=== PATIENT | female | born 1950 | race Caucasian/White ===

== ENCOUNTER 2017-01-11 15:23 | Emergency (ER) | payer MEDICARE, OTHER ==
[~2017-01-11] VITALS: Ht 157.5 cm; Wt 75.0 kg
[2017-01-11 15:25] VITALS: BP 152/96; PULSE 77; RESP 14; TEMP 98.1; O2SAT 95
[2017-01-11 16:09] LABS: BASOPHIL # 0.1 TH/MM3 (0-0.2); BASOPHIL % 0.8 % (0.0-2.0); EOSINOPHIL # 0.2 TH/MM3 (0-0.4); EOSINOPHIL % 1.9 % (0.0-4.0); HEMATOCRIT 49.1 % (35.0-46.0); HEMO FLAGS DIFF FINAL; LYMPH % 28.9 % (9.0-44.0); LYMPHOCYTE # 2.8 TH/MM3 (1.0-4.8); MEAN CELL VOLUME 93.8 FL (80.0-100.0); MEAN CORPUSCULAR HEMOGLOBIN 31.6 PG (27.0-34.0); MEAN CORPUSCULAR HGB CONC 33.7 % (32.0-36.0); MONO % 5.4 % (0.0-8.0); PLATELET COUNT 152 TH/MM3 (150-450); RED BLOOD COUNT 5.23 MIL/MM3 (4.00-5.30); RED CELL DISTRIBUTION WIDTH 13.3 % (11.6-17.2); WHITE BLOOD COUNT 9.6 TH/MM3 (4.0-11.0)
[2017-01-11 16:36] LABS: BICARBONATE 25.1 MEQ/L (21.0-32.0); POTASSIUM 3.7 MEQ/L (3.5-5.1)
--- NOTE | 2017-01-11 17:21 | PD ---
HPI Chief Complaint: Abnormal Results Time Seen by Provider: 16:49 Travel History International Travel<30 days: No Contact w/Intl Traveler<30days: No Traveled to known affect area: No History of Present Illness HPI 66-year-old female came to the emergency room because a blood test that was done 2 weeks ago was told by her primary care today showed significant anemia. She was told that her hemoglobin was 6.5. However there was blood test done prior to patient arriving into the pod and the blood test result shows a hemoglobin of 16.5. She does not have any other complains. She was happy to hear the news of the hemoglobin. [facility] Past Medical History Narrative Medical List of her past medical, surgical, social and family history is reviewed from the nursing note. Diabetes: Yes Patient Takes Glucophage: No Diminished Hearing: Yes Endocrine: Yes (hypothyroidism) Hypertension: Yes Tetanus Vaccination: > 5 Years Influenza Vaccination: No Menopausal: Yes Tubal Ligation: Yes Past Surgical History Cholecystectomy: Yes Gynecologic Surgery: Yes (tubal) Social History Alcohol Use: Yes (once a year) Tobacco Use: Yes (PPD) Substance Use: No Allergies-Medications Comments Awaiting for the nurse to enter the allergy results Narrative Medication Awaiting for the nurse to do the medical reconciliation Review of Systems Except as stated in HPI: all other systems reviewed are Neg Physical Exam Narrative GENERAL: Awake, alert, no obvious distress SKIN: Focused skin assessment warm/dry. HEAD: Atraumatic. Normocephalic. EYES: Pupils equal and round. No scleral icterus. No injection or drainage. ENT: No nasal bleeding or discharge. Mucous membranes pink and moist. NECK: Trachea midline. No JVD. CARDIOVASCULAR: Regular rate and rhythm. No murmur appreciated. RESPIRATORY: No accessory muscle use. Clear to auscultation. Breath sounds equal bilaterally. GASTROINTESTINAL: Abdomen soft, non-tender, nondistended. Hepatic and splenic margins not palpable. MUSCULOSKELETAL: No obvious deformities. No clubbing. No cyanosis. No edema. NEUROLOGICAL: Awake and alert. No obvious cranial nerve deficits. Motor grossly within normal limits. Normal speech. PSYCHIATRIC: Appropriate mood and affect; insight and judgment normal. Data Data Last Documented VS Vital Signs Date Time Temp Pulse Resp B/P (MAP) Pulse Ox O2 Delivery O2 Flow Rate FiO2 01/11/17 17:39 01/11/17 15:25 98.1 77 14 95 Orders Orders Complete Blood Count With Diff (01/11/17 15:34) Basic Metabolic Panel (Bmp) (01/11/17 15:34) Type And Screen (01/11/17 15:34) Labs Laboratory Tests Test 01/11/17 15:47 White Blood Count 9.6 TH/MM3 Red Blood Count 5.23 MIL/MM3 Hemoglobin 16.5 GM/DL Hematocrit 49.1 % Mean Corpuscular Volume 93.8 FL Mean Corpuscular Hemoglobin 31.6 PG Mean Corpuscular Hemoglobin Concent 33.7 % Red Cell Distribution Width 13.3 % Platelet Count 152 TH/MM3 Mean Platelet Volume 9.8 FL Neutrophils (%) (Auto) 63.0 % Lymphocytes (%) (Auto) 28.9 % Monocytes (%) (Auto) 5.4 % Eosinophils (%) (Auto) 1.9 % Basophils (%) (Auto) 0.8 % Neutrophils # (Auto) 6.0 TH/MM3 Lymphocytes # (Auto) 2.8 TH/MM3 Monocytes # (Auto) 0.5 TH/MM3 Eosinophils # (Auto) 0.2 TH/MM3 Basophils # (Auto) 0.1 TH/MM3 CBC Comment DIFF FINAL Differential Comment Blood Urea Nitrogen 12 MG/DL Creatinine 0.67 MG/DL Random Glucose 116 MG/DL Calcium Level 9.4 MG/DL Sodium Level 137 MEQ/L Potassium Level 3.7 MEQ/L Chloride Level 103 MEQ/L Carbon Dioxide Level 25.1 MEQ/L Anion Gap 9 MEQ/L Estimat Glomerular Filtration Rate 88 ML/MIN MDM Medical Decision Making Medical Screen Exam Complete: Yes Emergency Medical Condition: Yes Medical Record Reviewed: Yes Differential Diagnosis Lab error, normal exam Narrative Course 5:26 PM given the fact that the blood test is within normal limit I will discharge her. Patient wants to go home and is happy with this news. She will follow up with her primary care as an outpatient. Procedures EKG Prior to Arrival: No Diagnosis Primary Impression: Normal physical exam Referrals: Primary Care Physician Additional Instructions: Please follow-up with your primary care Disposition: 01 DISCHARGE HOME Condition: Stable Yon Medina MD Jan 11, 2017 17:21
== END 2017-01-11 17:41 | disposition home or self-care (01) ==
LOC: NEPC 15:23
DX: Z09 Encounter for follow-up examination after completed treatment for conditions other than malignant neoplasm (principal); E11.9 Type 2 diabetes mellitus without complications; I10 Essential (primary) hypertension; Z72.0 Tobacco use
CPT/HCPCS: 80048; 85025; 86850; 86900; 86901; 99283

== ENCOUNTER 2017-08-13 07:08 | Day surgery (SDC) | payer MEDICARE, OTHER ==
[~2017-08-13] VITALS: Ht 154.9 cm; Wt 67.3 kg
[2017-08-13] VITALS (7 sets, daily range): BP systolic 94–134; BP diastolic 53–83; PULSE 82–89; RESP 16–20; TEMP 97.9; O2SAT 93–96
[2017-08-13] MEDS ORDERED: LISI2.5T3 PO (07:31)
[2017-08-13] MEDS ORDERED: LEVO-86 PO (07:31)
[2017-08-13] MEDS ORDERED: GLYB2.5T3 PO (07:31)
[2017-08-13] MEDS ORDERED: ceFAZolin 2 GM PREMIX 50 ML - implanted port/tunneled catheter insertion IV SCH (07:45)
[2017-08-13] MEDS ORDERED: CHLORHEXIDINE GLUCONATE 2 % 1 PACK (2 CLOTHS) TOPICAL SCH (07:45)
[2017-08-13] MEDS ORDERED: SODIUM CHLORIDE 0.9% 1000 ML IV SCH (07:45)
[2017-08-13] MEDS ORDERED: VANCOMYCIN 1000 MG/NS 250 ML - implanted port/tunneled catheter IV SCH ×2 (07:45)
[2017-08-13] MEDS: POVIDONE IODINE 5% (ANTISEPSIS KIT) 4 APPLICATIONS EACH NARE SCH ×2 (07:50→08:09)
[2017-08-13 07:55] LABS: AUTOMATED NEUTROPHIL # 11.5 TH/MM3 (1.8-7.7); BASOPHIL % 0.3 % (0.0-2.0); EOSINOPHIL # 0.1 TH/MM3 (0-0.4); EOSINOPHIL % 0.5 % (0.0-4.0); HEMATOCRIT 37.1 % (35.0-46.0); HEMOGLOBIN 12.5 GM/DL (11.6-15.3); LYMPH % 6.8 % (9.0-44.0); LYMPHOCYTE # 0.9 TH/MM3 (1.0-4.8); MEAN CELL VOLUME 89.6 FL (80.0-100.0); MEAN CORPUSCULAR HEMOGLOBIN 30.3 PG (27.0-34.0); MEAN CORPUSCULAR HGB CONC 33.8 % (32.0-36.0); MEAN PLATELET VOLUME 8.7 FL (7.0-11.0); MONO % 5.8 % (0.0-8.0); MONOCYTE # 0.8 TH/MM3 (0-0.9); NEUT % 86.6 % (16.0-70.0); PLATELET COUNT 241 TH/MM3 (150-450); RED BLOOD COUNT 4.14 MIL/MM3 (4.00-5.30); RED CELL DISTRIBUTION WIDTH 15.4 % (11.6-17.2); WHITE BLOOD COUNT 13.3 TH/MM3 (4.0-11.0)
[2017-08-13 08:04] LABS: INTERNATIONAL NORMALIZED RATIO 1.1 RATIO; PROTHROMBIN TIME - PATIENT 11.5 SEC (9.8-11.6)
[2017-08-13] MEDS ORDERED: MIDAZOLAM HCL 2 MG/2 ML VIAL ONE (08:40)
[2017-08-13] MEDS ORDERED: LIDOCAINE 1%/EPINEPHrine 1:100,000 SOLN 30 ML VIAL ONE (08:48)
--- NOTE | 2017-08-13 09:54 | PD.RAD ---
Post Procedure Progress Note Pre Procedure Diagnosis: (1) Lung cancer, lower lobe Post Procedure Diagnosis: (1) Lung cancer, lower lobe Procedure Date: August 13, 2017 Supervising Radiologist: Ulices Almaraz Proceduralist/Assist: RT Susie(R) Anesthesia: Local, Analgesia, Conscious Sedation Plan of Activity Patient to Unit: ROPU Patient Condition: Good See PACS Report for procedural detail/treatment Central Venous Access Device Procedure 1 Right Internal Jugular Infusaport Placement single lumen [place]ish: 8 Ulices Almaraz MD August 13, 2017 09:54
[2017-08-13] MEDS ORDERED: SODIUM CHLORIDE 0.9% FLUSH 10 ML FLUSH IVF PRN (10:00)
--- NOTE | 2017-08-13 14:02 | RADRPT ---
EXAM DATE/TIME: 08/13/2017 08:59 [place] COMPARISON: No previous studies available for comparison. INDICATIONS : Patient presents with lung cancer here for a port placement. MEDICAL HISTORY : COPD Diabetes HNT Hx Pneumonia Ex Smoker SURGICAL HISTORY : Tubal Ligation Nataliia ENCOUNTER: Initial ACUITY: 2 months PAIN SCORE: FLUORO TIME: 0.6 minutes IMAGE SERIES: 1 SEDATION TIME: 45 minutes ACCESS: Right internal jugular vein SEDATION: 1.) 2.5 mg midazolam (Versed) IV 2.) 175 mcg fentanyl (Sublimaze) IV Prophylactic antibiotics were administered with appropriate pre-procedure timing. Vancomycin within 2 hours of procedure, Ancef (or alternative) within 1 hour of procedure. DEVICE: 1. 8 Urdu single lumen [id number] PROCEDURE : 1. Continuous pulse oximetry and EKG monitoring. 2. Intravenous conscious sedation. 3. Ultrasound guidance for venous access. 4. Fluoroscopic guided implantable central venous port placement. The patient was placed supine. The neck was prepped in sterile fashion. Full sterile technique was u sed, including cap, mask, sterile gloves and gown, and a large sterile sheet. Hand hygiene and 2% ch lorhexidine Betadine was utilized per protocol for cutaneous antisepsis with appropriate dry time for site. Sterile gel and sterile probe cover were utilized for ultrasound guidance. The skin and sub cutaneous tissues were infiltrated with local anesthetic solution. Under direct ultrasound guidance, central venous access was accomplished in the targeted vessel. The ultrasound images depicting access guidance were stored and saved to PACS for permanent record. A s ubcutaneous pocket was created using blunt dissection. The port was introduced to the pocket. The c atheter tubing was fed through a subcutaneous tunnel to the venotomy site. The catheter tubing was c ut to a suitable length and then was introduced through a valved Peel-Away sheath and positioned with catheter tubing tip at the cavo-atrial junction level. The pocket incision was closed with subcutic ular Vicryl suture. Steri-Strips were applied. The port was flushed and locked with heparin solutio n per protocol. Sterile dressing was applied to the site. The patient tolerated the procedure well. Conscious sedation was performed with the prescribed dosages and duration as above in the presence of an independent trained radiology nurse to assist in the monitoring of the patient. EKG and oximetry remained stable throughout the procedure. The patient tolerated the procedure well and there were no complications. The patient was sent to post anesthesia recovery in stable condition. CONCLUSION: Uncomplicated ultrasound and fluoroscopic guided implanted central venous port catheter placement as described in detail above. An 8 Urdu Power port was placed. Ulices Almraaz MD on August 13, 2017 at 13:39 Board Certified Radiologist. This report was verified electronically.
== END 2017-08-13 13:54 | disposition home or self-care (01) ==
LOC: HROP 07:08 → HRIP 07:11 → HROP 13:54
PROVIDERS: ATTEND Internal Medicine Hematology
DX: Z45.2 Encounter for adjustment and management of vascular access device (principal); C34.31 Malignant neoplasm of lower lobe, right bronchus or lung; E11.9 Type 2 diabetes mellitus without complications; J44.9 Chronic obstructive pulmonary disease, unspecified
CPT/HCPCS: 36561; 76937; 77001; 85025; 85610; 85730; 99152; 99153; C1788; J0690; J1642; J2250; J3010; J3370; J7030; J7050

== ENCOUNTER 2017-09-01 20:57 | Inpatient (IN) | payer MEDICARE, OTHER ==
[~2017-09-01] VITALS: Ht 157.5 cm; Wt 65.5 kg
[~2017-09-01 20:57] MED LIST: GLYB2.5T3 PO; LEVO-86 PO; LISI2.5T3 PO
[2017-09-01] MEDS ORDERED: SODIUM CHLORIDE 0.9% FLUSH 10 ML FLUSH IVF PRN (21:00)
--- NOTE | 2017-09-01 21:01 | PD ---
HPI Chief Complaint: Coughing up blood Time Seen by Provider: 21:00 Travel History International Travel<30 days: No Contact w/Intl Traveler<30days: No Traveled to known affect area: No History of Present Illness HPI Approximately 30 minutes prior to calling 911 the patient had a couple of coughing episodes which led to her coughing up bright red blood. She continued to have several more episodes of coughing leading to hemoptysis, denies any active nausea vomiting or diarrhea. She does state that she is currently under treatment for lung cancer. Patient called 911 because she started to feel lightheaded and dizzy, according to EMS upon their arrival they noticed her blood pressure systolic was in the 90s, they went ahead and started an IV and gave her IV fluids in route to bring the patient to the emergency department, Blood pressure improved to 120 systolic.... Upon discussion with patient she states that she does not have a state DNR in place, however she does not want to be resuscitated and stated that her daughter will also discuss and agree as she is her power of transactional attorney in the event that she is incapacitated No known drug allergy Past medical history significant for hypothyroidism, lung cancer PFSH Past Medical History Cancer: Yes (RLL MASS) Diabetes: Yes Diminished Hearing: Yes Endocrine: Yes (hypothyroidism) Hepatitis: No Hypertension: Yes Immune Disorder: No Psychiatric: No Thyroid Disease: Yes Menopausal: Yes Tubal Ligation: Yes Past Surgical History Abdominal Surgery: Yes (GALLBLADDER) Cardiac Surgery: No Cholecystectomy: Yes Ear Surgery: No Endocrine Surgery: No Eye Surgery: No Genitourinary Surgery: No Gynecologic Surgery: Yes (tubal) Oral Surgery: No Thoracic Surgery: No Social History Alcohol Use: Yes (once a year) Tobacco Use: Yes (PPD) Substance Use: No Allergies-Medications (Allergen,Severity, Reaction): Coded Allergies: No Known Allergies (Unverified , 09/01/17) Reported Meds & Prescriptions Reported Meds & Active Scripts Active Reported Cipro (Ciprofloxacin HCl) 500 Mg Tab 500 Mg PO BID Glyburide 2.5 Mg Tab 2.5 Mg PO DAILY Take with meals at the same time each day Synthroid (Levothyroxine Sodium) 137 Mcg Tab 137 Mcg PO DAILY Lisinopril 2.5 Mg Tab 2.5 Mg PO DAILY Review of Systems General / Constitutional: No: Fever Eyes: No: Visual changes HENT: Positive: Lightheadedness Cardiovascular: No: Chest Pain or Discomfort Respiratory: Positive: Hemoptysis Gastrointestinal: No: Abdominal Pain Genitourinary: No: Dysuria Musculoskeletal: No: Pain Skin: No Rash Neurologic: No: Weakness Psychiatric: No: Depression Endocrine: No: Polydipsia Hematologic/Lymphatic: No: Easy Bruising Physical Exam Narrative GENERAL: SKIN: Warm and dry. Pale HEAD: Atraumatic. Normocephalic. EYES: Pupils equal and round. No scleral icterus. No injection or drainage. ENT: No nasal bleeding or discharge. Mucous membranes pink and moist. NECK: Trachea midline. No JVD. CARDIOVASCULAR: Regular rhythm, tachycardic rate RESPIRATORY: No accessory muscle use. Bilateral rhonchi, scattered wheezing GASTROINTESTINAL: Abdomen soft, non-tender, nondistended. Hepatic and splenic margins not palpable. MUSCULOSKELETAL: Extremities without clubbing, cyanosis, or edema. No obvious deformities. NEUROLOGICAL: Awake and alert. No obvious cranial nerve deficits. Motor grossly within normal limits. Five out of 5 muscle strength in the arms and legs. Normal speech. PSYCHIATRIC: Appropriate mood and affect; insight and judgment normal. Data Data Last Documented VS Vital Signs Date Time Temp Pulse Resp B/P (MAP) Pulse Ox O2 Delivery O2 Flow Rate FiO2 09/01/17 23:06 128 18 126/70 (88) 100 Nasal Cannula 4.00 Orders Orders Electrocardiogram (09/01/17 21:00) B-Type Natriuretic Peptide (09/01/17 21:00) Ckmb (Isoenzyme) Profile (09/01/17 21:00) Complete Blood Count With Diff (09/01/17:) Comprehensive Metabolic Panel (09/01/17 21:00) Magnesium (Mg) (09/01/17 21:00) Prothrombin Time / Inr (Pt) (09/01/17 21:00) Act Partial Throm Time (Ptt) (09/01/17 21:00) Troponin I (09/01/17 21:00) Lipase (09/01/17 21:00) Chest, Single Ap (09/01/17 21:00) Ecg Monitoring (09/01/17 21:00) Bilateral Bp Monitoring (09/01/17 21:00) Iv Access Insert/Monitor (09/01/17 21:00) Oximetry (09/01/17 21:00) Oxygen Administration (09/01/17 21:00) Sodium Chloride 0.9% Flush (Ns Flush) (09/01/17 21:00) Labs Laboratory Tests Test 09/01/17 21:10 White Blood Count 6.6 TH/MM3 Red Blood Count 3.43 MIL/MM3 Hemoglobin 10.5 GM/DL Hematocrit 31.2 % Mean Corpuscular Volume 90.9 FL Mean Corpuscular Hemoglobin 30.7 PG Mean Corpuscular Hemoglobin Concent 33.8 % Red Cell Distribution Width 15.2 % Platelet Count 199 TH/MM3 Mean Platelet Volume 9.0 FL Neutrophils (%) (Auto) 82.9 % Lymphocytes (%) (Auto) 11.1 % Monocytes (%) (Auto) 5.2 % Eosinophils (%) (Auto) 0.5 % Basophils (%) (Auto) 0.3 % Neutrophils # (Auto) 5.4 TH/MM3 Lymphocytes # (Auto) 0.7 TH/MM3 Monocytes # (Auto) 0.3 TH/MM3 Eosinophils # (Auto) 0.0 TH/MM3 Basophils # (Auto) 0.0 TH/MM3 CBC Comment DIFF FINAL Differential Comment Prothrombin Time 12.1 SEC Prothromb Time International Ratio 1.2 RATIO Activated Partial Thromboplast Time 29.3 SEC Blood Urea Nitrogen 12 MG/DL Creatinine 0.60 MG/DL Random Glucose 198 MG/DL Total Protein 6.3 GM/DL Albumin 2.1 GM/DL Calcium Level 8.5 MG/DL Magnesium Level 1.7 MG/DL Alkaline Phosphatase 100 U/L Aspartate Amino Transf (AST/SGOT) 19 U/L Alanine Aminotransferase (ALT/SGPT) 17 U/L Total Bilirubin 1.0 MG/DL Sodium Level 129 MEQ/L Potassium Level 3.5 MEQ/L Chloride Level 96 MEQ/L Carbon Dioxide Level 21.6 MEQ/L Anion Gap 11 MEQ/L Estimat Glomerular Filtration Rate 100 ML/MIN Total Creatine Kinase 35 U/L Troponin I LESS THAN 0.02 NG/ML B-Type Natriuretic Peptide 22 PG/ML Lipase 55 U/L MDM Medical Decision Making Medical Screen Exam Complete: Yes Emergency Medical Condition: Yes Medical Record Reviewed: Yes Interpretation(s) EKG shows sinus tachycardia, 120 bpm, normal intervals, no evidence of any ST elevation WA, however there are some mild ST depressions on the inferior lateral leads. Differential Diagnosis This is secondary to lung CA versus pulmonary embolus versus symptomatic hemoptysis versus anemia versus hypotension Narrative Course Chest x-ray read by radiologist as large cavitary lesion in the right lower lobe identified on a previous PET scan/CT, no evidence of acute congestion or airspace disease. Rswbjg-j-[id number] catheter is noted in place. CBC shows no leukocytosis, normal platelet count, H&H 10.5/31, her hemoglobin was 12.5 on August 13, 2017 Coagulation profile is within normal limits Electrolytes are all within normal limits with the exception of sodium hyponatremia 129, random glucose of 198, normal kidney liver and pancreatic functions. First set of cardiac enzymes negative and beta natruretic peptide also negative Current blood pressure is 126/70, tachycardic at 118 Critical Care Narrative CRITICAL CARE NOTE: With evaluation of the patient, labs, EKG, receipt of radiologic studies, administration of medications, reevaluation the patient and discussion of the patient with the admitting physicians, the total critical care time was [45] minutes. Time to perform other separately billable procedures was not included in the critical care time. Diagnosis Primary Impression: Large hemoptysis Additional Impression: Transient hypotension Admitting Information Admitting Physician Requests: Observation Naga Berumen MD September 01, 2017 21:01
[2017-09-01 21:06] VITALS: BP 133/69; PULSE 121; RESP 20; O2SAT 92
[2017-09-01] MEDS ORDERED: CIPR-9 PO (21:06)
[2017-09-01 21:08] VITALS: BP_SYST 120; BP_SYST 133; BP_DIAS 62; BP_DIAS 69; O2SAT 92
--- NOTE | 2017-09-01 21:23 | RADRPT ---
EXAM DATE: 09/01/2017 9:20 PM EDT AGE/SEX: 66 years / Female INDICATIONS: Shortness of breath. CLINICAL DATA: This is the patient's initial encounter. Patient reports that signs and symptoms have been present for 2 days and indicates a pain score of 2/10. MEDICAL/SURGICAL HISTORY: Chronic obstructive pulmonary disease. Diabetes mellitus type II. C arcinoma, lung. . Infusaport. COMPARISON: TLI, PET/CT TUMOR, 08/01/2017. . FINDINGS: Large cavitary mass is again identified in the right lower lobe. Left lung is clear. Mass involves the right hilum. Heart and mediastinal structures are otherwise unremarkable. Erzlzh-l-Upet catheter is noted in place. CONCLUSION: Large cavitary lesion in the right lower lobe identified on previous PET/CT No evidence of acute congestion or airspace disease. Electronically signed by: Clyde Vaughan MD 09/01/2017 9:22 PM EDT
[2017-09-01 21:27] LABS: AUTOMATED NEUTROPHIL # 5.4 TH/MM3 (1.8-7.7); BASOPHIL % 0.3 % (0.0-2.0); EOSINOPHIL % 0.5 % (0.0-4.0); HEMATOCRIT 31.2 % (35.0-46.0); HEMOGLOBIN 10.5 GM/DL (11.6-15.3); LYMPH % 11.1 % (9.0-44.0); LYMPHOCYTE # 0.7 TH/MM3 (1.0-4.8); MEAN CELL VOLUME 90.9 FL (80.0-100.0); MEAN CORPUSCULAR HEMOGLOBIN 30.7 PG (27.0-34.0); MEAN CORPUSCULAR HGB CONC 33.8 % (32.0-36.0); MONO % 5.2 % (0.0-8.0); MONOCYTE # 0.3 TH/MM3 (0-0.9); NEUT % 82.9 % (16.0-70.0); PLATELET COUNT 199 TH/MM3 (150-450); RED BLOOD COUNT 3.43 MIL/MM3 (4.00-5.30); RED CELL DISTRIBUTION WIDTH 15.2 % (11.6-17.2); WHITE BLOOD COUNT 6.6 TH/MM3 (4.0-11.0)
[2017-09-01 21:36] LABS: INTERNATIONAL NORMALIZED RATIO 1.2 RATIO; PROTHROMBIN TIME - PATIENT 12.1 SEC (9.8-11.6)
[2017-09-01 21:42] LABS: ALBUMIN 2.1 GM/DL (3.4-5.0); AST (GOT) 19 U/L (15-37); BICARBONATE 21.6 MEQ/L (21.0-32.0); BLOOD UREA NITROGEN 12 MG/DL (7-18); CALCIUM 8.5 MG/DL (8.5-10.1); CHLORIDE 96 MEQ/L (98-107); GLOMERULAR FILTRATION RATE 100 ML/MIN (>89); GLUCOSE,RANDOM 198 MG/DL (74-106); MAGNESIUM 1.7 MG/DL (1.5-2.5); SODIUM (NA) 129 MEQ/L (136-145)
[2017-09-01 21:43] LABS: ALT (GPT) 17 U/L (10-53)
[2017-09-01 21:47] LABS: ALKALINE PHOSPHATASE 100 U/L (45-117); TOTAL PROTEIN 6.3 GM/DL (6.4-8.2); TROPONIN I LESS THAN 0.02 NG/ML (0.02-0.05)
[2017-09-01 23:06] VITALS: BP 126/70; PULSE 128; RESP 18; O2SAT 100
[2017-09-01] MEDS ORDERED: SODIUM CHLOR 0.9% 1000 ML INJ 1,000 ML IV ONE (23:30)
[2017-09-01] MEDS ORDERED: METOCLOPRAMIDE HCL 10 MG/2 ML VIAL IV PUSH PRN (23:45)
[2017-09-01] MEDS ORDERED: LACTULOSE SYRUP 20 GM/30 ML CUP PO PRN (23:45)
[2017-09-01] MEDS ORDERED: ACETAMINOPHEN/HYDROcodone 325 MG/5 MG TAB PO PRN (23:45)
[2017-09-01] MEDS ORDERED: MAGNESIUM HYDROXIDE SUSP 30 ML CUP PO PRN (23:45)
[2017-09-01] MEDS ORDERED: RESP: ALBUTEROL 2.5 MG/IPRATROPIUM 0.5 MG NEB (PRN) NEB (23:45)
[2017-09-01] MEDS ORDERED: DEXTROSE 50% IN WATER 50 ML VIAL(D50) IV PUSH PRN (23:45)
[2017-09-01] MEDS ORDERED: SENNOSIDES 8.6 MG TAB PO PRN (23:45)
[2017-09-01] MEDS ORDERED: BISACODYL 10 MG SUPP RECTAL PRN (23:45)
[2017-09-01] MEDS ORDERED: SODIUM CHLORIDE 0.9% FLUSH 10 ML FLUSH IV FLUSH PRN (23:45)
[2017-09-01] MEDS ORDERED: GLUCAGON 1 MG/ML VIAL OTHER PRN (23:45)
[2017-09-01] MEDS ORDERED: MORPHINE SULFATE 4 MG/ML INJ IV PUSH PRN (23:45)
--- NOTE | 2017-09-01 23:59 | HHI.HP ---
[facility] No Primary Care Physician Admission Diagnosis LARGE HEMOPTYSIS, TRANSIENT HYPOTENSION Diagnoses: (1) Lung cancer Diagnosis: Principal (2) Anemia Diagnosis: Principal (3) Hyponatremia Diagnosis: Principal (4) DM (diabetes mellitus) Diagnosis: Principal Travel History International Travel<30 Days: No Contact w/Intl Traveler <30 Da: No Traveled to Known Affected Are: No History of Present Illness This is a 66-year-old male with a PMH of HTN, DM and Lung CA who is brought to the ER by EMS secondary to dizziness and hypotension. Initially reported to have had episode of hemoptysis, however Daughter reports pt w/ episode of vomiting blood, not coughing up blood. Symptoms now resolved. No previous h/o GI Bleed. Currently under Chemo/Radiation w/ Dr. Muñoz and Dr. Moeller. Denies fever, chills, abdominal pain or diarrhea. Does note chronic non-productive cough which pt states is baseline. On arrival, BP 133/69, HR 121, O2 sat 92% on 4L NC. Hemoglobin 10.5, previously 12.5 on 08/13/2017. Na 129, otherwise chemistry unremarkable. Troponin negative. INR 1.2. CXR with large cavitary lesion in right lower lobe identified on previous PET/CT. Review of Systems Except as stated in HPI: all other systems reviewed are Neg ROS: 14 point review of systems otherwise negative. Past Family Social History Past Medical History PMH: HTN, DM and Lung CA Past Surgical History PAST SURGICAL HISTORY: Cholecystectomy, Tubal Ligation Allergies: Coded Allergies: No Known Allergies (Unverified , 09/01/17) Family History PAST FAMILY HISTORY: Reviewed. No h/o DM or CAD Social History PAST SOCIAL HISTORY: Occasional alcohol. Smokes 1ppd. Negative for drugs. Physical Exam Vital Signs Vital Signs Date Time Temp Pulse Resp B/P (MAP) Pulse Ox O2 Delivery O2 Flow Rate FiO2 09/01/17 23:06 128 18 126/70 (88) 100 Nasal Cannula 2.00 09/01/17 21:08 92 Nasal Cannula 4.00 09/01/17 21:08 92 Nasal Cannula 4.00 5/26/18 21:08 120/62 (81) 133/69 (90) 09/01/17 21:06 121 20 133/69 (90) 92 Nasal Cannula 4.00 09/01/17 21:02 126 20 87 Nasal Cannula 2.00 Physical Exam PE: GENERAL: Middle-aged white female in no acute distress. Daughter at bedside HEENT: PERRLA, EOMI. No scleral icterus or conjunctival pallor. No lid lag or facial droop. CARDIOVASCULAR: Regular rate and rhythm. No obvious murmurs to auscultation. No chest tenderness to palpation. RESPIRATORY: No obvious rhonchi or wheezing. Clear to auscultation. Breath sounds equal bilaterally. GASTROINTESTINAL: Abdomen soft, non-tender, nondistended. BS normal. MUSCULOSKELETAL: Extremities without clubbing, cyanosis, or edema. No obvious deformities. NEUROLOGICAL: Awake, alert and oriented x4. No focal neurologic deficits. Moving both upper and lower extremities spontaneously. Laboratory Laboratory Tests Test 09/01/17 21:10 White Blood Count 6.6 Red Blood Count 3.43 Hemoglobin 10.5 Hematocrit 31.2 Mean Corpuscular Volume 90.9 Mean Corpuscular Hemoglobin 30.7 Mean Corpuscular Hemoglobin Concent 33.8 Red Cell Distribution Width 15.2 Platelet Count 199 Mean Platelet Volume 9.0 Neutrophils (%) (Auto) 82.9 Lymphocytes (%) (Auto) 11.1 Monocytes (%) (Auto) 5.2 Eosinophils (%) (Auto) 0.5 Basophils (%) (Auto) 0.3 Neutrophils # (Auto) 5.4 Lymphocytes # (Auto) 0.7 Monocytes # (Auto) 0.3 Eosinophils # (Auto) 0.0 Basophils # (Auto) 0.0 CBC Comment DIFF FINAL Differential Comment Prothrombin Time 12.1 Prothromb Time International Ratio 1.2 Activated Partial Thromboplast Time 29.3 Blood Urea Nitrogen 12 Creatinine 0.60 Random Glucose 198 Total Protein 6.3 Albumin 2.1 Calcium Level 8.5 Magnesium Level 1.7 Alkaline Phosphatase 100 Aspartate Amino Transf (AST/SGOT) 19 Alanine Aminotransferase (ALT/SGPT) 17 Total Bilirubin 1.0 Sodium Level 129 Potassium Level 3.5 Chloride Level 96 Carbon Dioxide Level 21.6 Anion Gap 11 Estimat Glomerular Filtration Rate 100 Total Creatine Kinase 35 Troponin I LESS THAN 0.02 B-Type Natriuretic Peptide 22 Lipase 55 Result Diagram: 09/01/17210909/01/172109 Caprini VTE Risk Assessment Caprini VTE Risk Assessment: No/Low Risk (score <= 1) Caprini Risk Assessment Model Point Value = 1 Point Value = 2 Point Value = 3 Point Value = 5 Age 41-60 Minor surgery BMI > 25 kg/m2 Swollen legs Varicose veins or History of unexplained or recurrent spontaneous Oral contraceptives or hormone replacement Sepsis (< 1 month) Serious lung disease, including pneumonia (< 1 month) Abnormal pulmonary function Acute myocardial infarction Congestive heart failure (< 1 month) History of inflammatory bowel disease Medical patient at bed rest Age 61-74 Arthroscopic surgery Major open surgery (> 45 min) Laparoscopic surgery (> 45 min) Malignancy Confined to bed (> 72 hours) Immobilizing plaster cast Central venous access Age >= 75 History of VTE Family history of VTE Factor V Leiden Prothrombin [id number] Lupus anticoagulant Anticardiolipin antibodies Elevated serum homocysteine Heparin-induced thrombocytopenia Other congenital or acquired thrombophilia Stroke (< 1 month) Elective arthroplasty Hip, pelvis, or leg fracture Acute spinal cord injury (< 1 month) Prophylaxis Regimen Total Risk Factor Score Risk Level Prophylaxis Regimen 0-1 Low Early ambulation 2 Moderate Order ONE of the following: *Sequential Compression Device (SCD) *Heparin 5000 units SQ BID 3-4 Higher Order ONE of the following medications: *Heparin 5000 units SQ TID *Enoxaparin/Lovenox 40 mg SQ daily (WT < 150 kg, CrCl > 30 mL/min) *Enoxaparin/Lovenox 30 mg SQ daily (WT < 150 kg, CrCl > 10-29 mL/min) *Enoxaparin/Lovenox 30 mg SQ BID (WT < 150 kg, CrCl > 30 mL/min) AND/OR *Sequential Compression Device (SCD) 5 or more Highest Order ONE of the following medications: *Heparin 5000 units SQ TID (Preferred with Epidurals) *Enoxaparin/Lovenox 40 mg SQ daily (WT < 150 kg, CrCl > 30 mL/min) *Enoxaparin/Lovenox 30 mg SQ daily (WT < 150 kg, CrCl > 10-29 mL/min) *Enoxaparin/Lovenox 30 mg SQ BID (WT < 150 kg, CrCl > 30 mL/min) AND *Sequential Compression Device (SCD) Assessment and Plan Problem List: (1) Lung cancer ICD Code: C34.90 - Malignant neoplasm of unspecified part of unspecified bronchus or lung (2) Anemia ICD Code: D64.9 - Anemia, unspecified (3) Hyponatremia ICD Code: E87.1 - Hypo-osmolality and hyponatremia (4) DM (diabetes mellitus) ICD Code: E11.9 - Type 2 diabetes mellitus without complications Assessment and Plan A/P: 1. Anemia: Hgb 10.5, previously 12.5 on 08/13/17, daughter reports pt w/ episode of hematemesis x1 earlier tonight, currently on Chemo/Radiation, daughter notes nausea/vomiting usually after treatment. Protonix IV, repeat Hgb /Hct, transfuse as needed. Consult GI as needed for further eval/intervention. 2. Hyponatremia: Na 129, IVF for hydration, repeat labs in am. 3. Lung CA: Currently on Chemo/Radiation w/ Dr. Muñoz and Dr. Moeller, will consult Dr. Moeller for further eval/recommendations at family's request. 4. DM: Sliding scale w/ Accu-Cheks, hold Glyburide to avoid hypoglycemia as not taking adequate PO. 5. DVT Prophylaxis: Pharmacologic contraindication secondary to acute bleed 6. Social work for DC planning as needed. 7. Case discussed at length with the ER physician, lab/record/imaging reviewed by mo Physician Certification 2 Midnight Certification Type: Admission for Inpatient Services Order for Inpatient Services The services are ordered in accordance with Medicare regulations or non- Medicare payer requirements, as applicable. In the case of services not specified as inpatient-only, they are appropriately provided as inpatient services in accordance with the 2-midnight benchmark. Estimated LOS (days): 2 days is the estimated time the patient will need to remain in the hospital, assuming treatment plan goals are met and no additional complications. Post-Hospital Plan: Not yet determined Rebecca Borden MD September 01, 2017 23:59
[2017-09-02] VITALS (9 sets, daily range): BP systolic 64–146; BP diastolic 30–80; PULSE 83–169; RESP 16–33; TEMP 98–102.3; O2SAT 89–100
[2017-09-02] MEDS: ACETAMINOPHEN 325 MG TAB PO PRN ×2 (01:44→12:28)
[2017-09-02] MEDS ORDERED: Vancomycin Consult Pharmacy 1 EA OTHER SCH (02:30)
[2017-09-02] MEDS: SODIUM CHLOR 0.9% 1000 ML INJ 1,000 ML IV SCH ×2 (02:54→19:39)
[2017-09-02] MEDS: CEFEPIME INJ 1,000 MG in SODIUM CHLORIDE 0.9% INJ 100 ML IV SCH ×2 (02:54→15:29)
[2017-09-02 02:55] LABS: AUTOMATED NEUTROPHIL # 4.1 TH/MM3 (1.8-7.7); BASOPHIL % 0.2 % (0.0-2.0); HEMATOCRIT 27.7 % (35.0-46.0); HEMOGLOBIN 9.5 GM/DL (11.6-15.3); LYMPH % 2.4 % (9.0-44.0); LYMPHOCYTE # 0.1 TH/MM3 (1.0-4.8); MEAN CELL VOLUME 89.5 FL (80.0-100.0); MEAN CORPUSCULAR HEMOGLOBIN 30.7 PG (27.0-34.0); MEAN CORPUSCULAR HGB CONC 34.3 % (32.0-36.0); MEAN PLATELET VOLUME 8.7 FL (7.0-11.0); MONO % 4.8 % (0.0-8.0); MONOCYTE # 0.2 TH/MM3 (0-0.9); NEUT % 92.6 % (16.0-70.0); PLATELET COUNT 164 TH/MM3 (150-450); RED CELL DISTRIBUTION WIDTH 15.3 % (11.6-17.2); WHITE BLOOD COUNT 4.4 TH/MM3 (4.0-11.0)
[2017-09-02 03:14] LABS: ALT (GPT) 16 U/L (10-53); AST (GOT) 13 U/L (15-37); BICARBONATE 21.1 MEQ/L (21.0-32.0); BLOOD UREA NITROGEN 13 MG/DL (7-18); CALCIUM 7.7 MG/DL (8.5-10.1); CHLORIDE 98 MEQ/L (98-107); CREATININE 0.68 MG/DL (0.50-1.00); GLOMERULAR FILTRATION RATE 87 ML/MIN (>89); GLUCOSE,RANDOM 291 MG/DL (74-106); SODIUM (NA) 131 MEQ/L (136-145)
[2017-09-02 03:17] LABS: ALKALINE PHOSPHATASE 88 U/L (45-117); TOTAL PROTEIN 5.9 GM/DL (6.4-8.2)
[2017-09-02] MEDS ORDERED: VANCOMYCIN INJ 1,100 MG in SODIUM CHLOR 0.9% 250 ML INJ 250 ML IV SCH (04:00)
[2017-09-02 04:18] LABS: BANDS 11 % (0-6); LYMPHOCYTES 1 % (9-44); METAMYELOCYTES 1 % (0-1); MONOCYTES 1 % (0-8); NEUTROPHIL # MANUAL DIFF 4.3 TH/MM3 (1.8-7.7); POLYS (SEG NEUTROPHILS) 86 % (16-70)
[2017-09-02 04:20] LABS: DOHLE BODIES PRESENT (NONE SEEN); TOXIC VACUOLATION PRESENT (NONE SEEN)
[2017-09-02] MEDS: INSULIN ASPART SUPPLEMENTAL SCALE SQ SCH ×3 (08:19→16:24)
[2017-09-02] MEDS ORDERED: DOCUSATE SODIUM 50 MG/SENNA 8.6 MG TAB PO SCH ×2 (09:00→21:00)
[2017-09-02] MEDS ORDERED: SODIUM CHLORIDE 0.9% FLUSH 10 ML FLUSH IV FLUSH SCH ×2 (09:00→21:00)
[2017-09-02] MEDS ORDERED: PANTOPRAZOLE SODIUM 40 MG VIAL IV PUSH SCH (09:00)
[2017-09-02] MEDS ORDERED: BUDESONIDE-FORMOTEROL 160/4.5 MCG INHALER INH SCH (09:00)
--- NOTE | 2017-09-02 14:33 | HHI.PR ---
Subjective Remarks states vomited bright red blood yesterday states was taking Ibuprofen for aches and pain art least 10 pills for past 5 days this am- states spitted out some bloody sputum,- minimal t max 102.3 a daughter- who is a nurse states she vomited blood Objective Vitals Vital Signs Date Time Temp Pulse Resp B/P (MAP) Pulse Ox O2 Delivery O2 Flow Rate FiO2 09/02/17 12:15 100.3 115 24 107/68 (81) 98 09/02/17 07:45 105 22 100/65 (77) 100 09/02/17 06:05 83 16 105/60 (75) 100 09/02/17 05:05 98.8 90 16 86/59 (68) 100 09/02/17 02:44 20 09/02/17 01:39 102.3 135 20 146/80 (102) 98 09/02/17 01:26 09/02/17 00:21 98 Nasal Cannula 2.00 09/01/17 23:06 128 18 126/70 (88) 100 Nasal Cannula 2.00 09/01/17 21:08 92 Nasal Cannula 4.00 09/01/17 21:08 92 Nasal Cannula 4.00 09/01/17 21:08 120/62 (81) 133/69 (90) 09/01/17 21:06 121 20 133/69 (90) 92 Nasal Cannula 4.00 09/01/17 21:02 126 20 87 Nasal Cannula 2.00 I/O 09/01/17 09/01/17 09/01/17 09/02/17 09/02/17 09/02/17 06:59 14:59 22:59 06:59 14:59 22:59 Intake Total 1240 ml Balance 1240 ml Intake Oral 240 ml IV Total 1000 ml # Voids 2 Result Diagram: 09/02/17 0240 09/02/17 0240 Imaging Last Impressions Chest X-Ray 09/01/17 2100 Signed Impressions: CONCLUSION: Large cavitary lesion in the right lower lobe identified on previous PET/CT No evidence of acute congestion or airspace disease. Objective Remarks weak, frail anicteric port in place lungs- no rales regular rhythm abdomen- soft, + bowel sounds extremities no edema neuro exam- non focal A/P Problem List: (1) Lung cancer ICD Code: C34.90 - Malignant neoplasm of unspecified part of unspecified bronchus or lung (2) Anemia ICD Code: D64.9 - Anemia, unspecified (3) Hyponatremia ICD Code: E87.1 - Hypo-osmolality and hyponatremia (4) DM (diabetes mellitus) ICD Code: E11.9 - Type 2 diabetes mellitus without complications Assessment and Plan 66 years old feamle history fo Lung cancer undergoing radiation treatment UGIB- hematemesis- r/o NSAID induced gastropathy vs Hemoptysis - on PPI q 12 - GI consult Sepsis--+ cough-likely secondary to Post Obstructive PNA Reported hemoptysis this am- spitted out blood ? Postobstructive PNA- T max 101 History fo Lung cancer- cavitary lesion on going radiation treatment ongoing - first week total of 7 weeks per patient - ff by Dr. Soliman - get UA- but patient received antibiotics already - send sputum for studies - ff Blood cultures - on Broad spectrum antibiotics - continue Cefepime + Vancomycin - if Pulmonary needed- consult Dr. Landers known to him HYponatremia- no signs of fluid excess- possible siADH - ff BMP - fluid restriction DM- type 2 - ff blood sugars No chemical prophylaxis with possible GIB/hemoptysis Maximo Wallace MD September 02, 2017 14:33
--- NOTE | 2017-09-02 14:36 | EKG ---
Date Performed: 09/01/2017 Time Performed: 21:08:20 PTAGE: 66 years EKG: SINUS TACHYCARDIA WITH SHORT WI INTERVAL ABNORMAL RHYTHM ECG NO PREVIOUS TRACING DOCTOR: Toby Adhikari Interpretating Date/Time 09/02/2017 14:35:43
[2017-09-02] MEDS ORDERED: NS + KCL 20 MEQ INJ 1,000 ML IV SCH (15:00)
[2017-09-02] MEDS ORDERED: POTASSIUM BICARBONATE 25 MEQ EFFERVESCENT TAB PO ONE (15:00)
[2017-09-02] MEDS ORDERED: POTASSIUM CHLOR 10 MEQ PREMIX 100 ML IV ONE (15:00)
[2017-09-02] MEDS ORDERED: SODIUM CHLORIDE 0.9% FLUSH 10 ML FLUSH IV FLUSH PRN ×2 (15:30→18:30)
[2017-09-02] MEDS ORDERED: NOREPINEPHRINE 4 MG/D5W 250 ML IV PRN (17:15)
[2017-09-02] MEDS ORDERED: SODIUM CHLOR 0.9% 250 ML INJ 250 ML IV ONE (17:15)
[2017-09-02] MEDS ORDERED: SODIUM BICARBONATE 8.4% INJ 50 MEQ/50 ML SYR ONE ×2 (17:54→17:59)
[2017-09-02] MEDS ORDERED: SODIUM BICARBONATE 8.4% INJ 150 MEQ in DEXTROSE 5% IN WATE 1000ML INJ 850 ML IV SCH ×2 (18:00)
[2017-09-02] MEDS ORDERED: VANCOMYCIN INJ 750 MG in SODIUM CHLOR 0.9% 250 ML INJ 250 ML IV SCH (18:00)
--- NOTE | 2017-09-02 18:20 | PD.CONS ---
HPI History of Present Illness This is an unfortunate 66 year old obese female who was admitted to the hospital on 09/01/2017 with symptoms of hemoptysis, dizziness, hypotension. Currently there is no family available but according to the record daughter states patient had episode of vomiting blood versus hemoptysis symptoms. There is no history of GI bleed. Patient is currently being treated for lung cancer and has been taken radiation and chemotherapy. On admission patient denied any fever chills abdominal pain or diarrhea. This p.m. on 09/02/2017 patient had a massive bleeding episode with bright red blood in her regular patient room. Emergency CODE BLUE was called and patient was transferred to the intensive care [facility] for further evaluation. During intubation it was noted per the staff that patient had a large amount of blood which appeared to be coming from her lungs. There was also blood in the oral pharynx after the OG was placed. Currently patient is critically ill blood pressure is 66 systolic in the critical care team is working to get specialty lines and her as well as volume and blood. Patient has obese abdomen,taut, hypoactive to no bowel sounds but this could be secondary to her low blood pressure. Currently patient is receiving 3 A of bicarbonate as well as D5W volume. It was also noted from the history that patient had been taking 10-15 and said tablets over the past few days for pain. Chest x-ray did show large cavitary lesion in the right lower lobe identified on previous PET scan CAT scan. (Gisel Macias) PFSH Past Medical History PMH: HTN, DM and Lung CA Past Surgical History PAST SURGICAL HISTORY: Cholecystectomy, Tubal Ligation (Gisel Macias) Coded Allergies: No Known Allergies (Unverified , 09/01/17) Medications Last Impressions Chest X-Ray 09/01/17 2100 Signed Impressions: CONCLUSION: Large cavitary lesion in the right lower lobe identified on previous PET/CT No evidence of acute congestion or airspace disease. Family History PAST FAMILY HISTORY: Reviewed. No h/o DM or CAD Social History PAST SOCIAL HISTORY: Occasional alcohol. Smokes 1ppd. Negative for drugs. (Gisel Macias) GI Exam Vitals I&O Vital Signs Date Time Temp Pulse Resp B/P (MAP) Pulse Ox O2 Delivery O2 Flow Rate FiO2 09/02/17 18:02 100 100 09/02/17 15:48 98.0 88 24 91/53 (66) 99 09/02/17 12:15 100.3 115 24 107/68 (81) 98 09/02/17 07:45 105 22 100/65 (77) 100 09/02/17 06:05 83 16 105/60 (75) 100 09/02/17 05:05 98.8 90 16 86/59 (68) 100 09/02/17 02:44 20 09/02/17 01:39 102.3 135 20 146/80 (102) 98 09/02/17 01:26 09/02/17 00:21 98 Nasal Cannula 2.00 09/01/17 23:06 128 18 126/70 (88) 100 Nasal Cannula 2.00 09/01/17 21:08 92 Nasal Cannula 4.00 09/01/17 21:08 92 Nasal Cannula 4.00 09/01/17 21:08 120/62 (81) 133/69 (90) 09/01/17 21:06 121 20 133/69 (90) 92 Nasal Cannula 4.00 09/01/17 21:02 126 20 87 Nasal Cannula 2.00 I/O 09/01/17 09/01/17 09/01/17 09/02/17 09/02/17 09/02/17 07:00 15:00 23:00 07:00 15:00 23:00 Intake Total 1240 ml Balance 1240 ml Intake Oral 240 ml IV Total 1000 ml # Voids 2 Imaging Last Impressions Chest X-Ray 09/01/17 2100 Signed Impressions: CONCLUSION: Large cavitary lesion in the right lower lobe identified on previous PET/CT No evidence of acute congestion or airspace disease. Laboratory Test 09/01/17 21:10 09/02/17 02:40 09/02/17 06:15 09/02/17 17:28 White Blood Count 6.6 TH/MM3 4.4 TH/MM3 Red Blood Count 3.43 MIL/MM3 3.10 MIL/MM3 Hemoglobin 10.5 GM/DL 9.5 GM/DL Hematocrit 31.2 % 27.7 % Mean Corpuscular Volume 90.9 FL 89.5 FL Mean Corpuscular Hemoglobin 30.7 PG 30.7 PG Mean Corpuscular Hemoglobin Concent 33.8 % 34.3 % Red Cell Distribution Width 15.2 % 15.3 % Platelet Count 199 TH/MM3 164 TH/MM3 Mean Platelet Volume 9.0 FL 8.7 FL Neutrophils (%) (Auto) 82.9 % 92.6 % Lymphocytes (%) (Auto) 11.1 % 2.4 % Monocytes (%) (Auto) 5.2 % 4.8 % Eosinophils (%) (Auto) 0.5 % 0.0 % Basophils (%) (Auto) 0.3 % 0.2 % Neutrophils # (Auto) 5.4 TH/MM3 4.1 TH/MM3 Lymphocytes # (Auto) 0.7 TH/MM3 0.1 TH/MM3 Monocytes # (Auto) 0.3 TH/MM3 0.2 TH/MM3 Eosinophils # (Auto) 0.0 TH/MM3 0.0 TH/MM3 Basophils # (Auto) 0.0 TH/MM3 0.0 TH/MM3 CBC Comment DIFF FINAL AUTO DIFF Differential Comment FINAL DIFF MANUAL Prothrombin Time 12.1 SEC Prothromb Time International Ratio 1.2 RATIO Activated Partial Thromboplast Time 29.3 SEC Blood Urea Nitrogen 12 MG/DL 13 MG/DL Creatinine 0.60 MG/DL 0.68 MG/DL Random Glucose 198 MG/DL 291 MG/DL Total Protein 6.3 GM/DL 5.9 GM/DL Albumin 2.1 GM/DL 2.0 GM/DL Calcium Level 8.5 MG/DL 7.7 MG/DL Magnesium Level 1.7 MG/DL Alkaline Phosphatase 100 U/L 88 U/L Aspartate Amino Transf (AST/SGOT) 19 U/L 13 U/L Alanine Aminotransferase (ALT/SGPT) 17 U/L 16 U/L Total Bilirubin 1.0 MG/DL 1.0 MG/DL Sodium Level 129 MEQ/L 131 MEQ/L Potassium Level 3.5 MEQ/L 3.3 MEQ/L Chloride Level 96 MEQ/L 98 MEQ/L Carbon Dioxide Level 21.6 MEQ/L 21.1 MEQ/L Anion Gap 11 MEQ/L 12 MEQ/L Estimat Glomerular Filtration Rate 100 ML/MIN 87 ML/MIN Total Creatine Kinase 35 U/L Troponin I LESS THAN 0.02 NG/ML B-Type Natriuretic Peptide 22 PG/ML Lipase 55 U/L Differential Total Cells Counted 100 Neutrophils % (Manual) 86 % Band Neutrophils % 11 % Lymphocytes % 1 % Monocytes % 1 % Neutrophils # (Manual) 4.3 TH/MM3 Metamyelocytes 1 % Toxic Vacuolation PRESENT Dohle Bodies PRESENT Platelet Estimate NORMAL Platelet Morphology Comment NORMAL Red Cell Morphology Comment NORMAL Lactic Acid Level 1.7 mmol/L Blood Gas Puncture Site CENTRAL LINE Blood Gas Patient Temperature 98.6 Venous Blood pH 6.89 Venous Blood Partial Pressure CO2 91 mmHg Venous Blood Partial Pressure O2 46 mmHg Venous Blood HCO3 17 mmol/L Venous Blood Oxygen Saturation 46 % Venous Blood Oxygen Content 2.5 Vol % Venous Blood Base Excess -14.7 mmol/L Oxygen Delivery Device VENTILATOR Blood Gas Ventilator Setting AC Blood Gas Inspired Oxygen 100 % Test 09/02/17 17:39 Blood Gas Puncture Site RT RADIAL Blood Gas HCO3 18 mmol/L Blood Gas Base Excess -11.7 mmol/L Blood Gas Oxygen Saturation 94 % Arterial Blood pH 7.00 Arterial Blood Partial Pressure CO2 78 mmHg Arterial Blood Partial Pressure O2 109 mmHg Arterial Blood Oxygen Content 4.9 Vol % Arterial Blood Carboxyhemoglobin 0.5 % Arterial Blood Methemoglobin 1.1 % Blood Gas Hemoglobin 3.5 G/DL Oxygen Delivery Device VENTILATOR Blood Gas Ventilator Setting Blood Gas Inspired Oxygen 100 % Date/Time Source Procedure Growth Status 09/02/17 02:40 Blood Peripheral Aerobic Blood Culture Pending Received 09/02/17 02:40 Blood Peripheral Anaerobic Blood Culture Pending Received Physical Examination HEENT: normocephalic; atraumatic, new intubation this p.m. NECK: Neck is supple, no JVD, CHEST: Chest diminished CARDIAC: Tachycardia ABDOMEN: Round, soft, mild tympanic distention, bowel sounds minimal if any for now EXTREMITIES: No lower extremity edema. SKIN: Very pale, dusky no rash; no jaundice. SHIPPING WEIGHER: Nonresponsive (Gisel Macias) Assessment and Plan Plan Hemoptysis versus hematemesis 66-year-old obese female with a significant history of lung cancer currently being treated with chemotherapy and radiation. Came to the hospital for admission on 09/01/2017 with hematemesis versus hemoptysis. According to the daughter and the records patient vomited blood large amount 1. This p.m. patient was in her usual state of health when she had an acute onset of massive hemorrhage and was coded and placed in the IMC unit. She is currently unstable with a systolic blood pressure in the 60s, intubated, OG tube placed with bright red blood noted small amount. Patient intubating patient stated large amount of blood in the lungs during intubation. Patient has a large cavitary lesion in the right lower lobe which could be causing her bleeding and she also could have been swallowing blood. Patient's also been taking large amount of NSAIDs recently. If patient survives this episode, patient may need angiogram or embolization to stabilize her. Before code hemoglobin was 10.5 on 526 and dropped to 9.5 on 527. WBC count 4.4 normal LFTs and bilirubin, albumin 2 PT/ INR 1.2. This case was discussed with Dr. Demarco. Currently patient is very hypotensive receiving volume transfusions pending, bicarb IV, her condition is critical. Plan Monitor labs with special attention to hemoglobin N.p.o. Will follow with porter sample case but at this time any procedures could be risky and detrimental to her current symptoms Consider angiogram and/or embolization if patient becomes a little more stable Further recommendations to follow Patient was seen and examined per myself and Dr. Demarco, note was written on his behalf (Gisel Macias) Physician Comments Patient seen and examined Agree with above Continue with current supportive care Monitor labs This is most likely a case of hemoptysis bleeding from a cavitary lesion secondary to malignancy status post chemo and radiation on intubation there was copious amount of blood from the ET tube At this point the patient is not stable for any endoscopic procedure and if there is any active bleeding best approach would be to pursue angiogram and possible embolization Case discussed with Dr. bowser (Antoni Demarco MD) Gisel Macias September 02, 2017 18:20 Antoni Demarco MD September 02, 2017 20:26
--- NOTE | 2017-09-02 18:28 | RADRPT ---
EXAM DATE: 09/02/2017 6:18 PM EDT AGE/SEX: 66 years / Female INDICATIONS: Central line placement. CLINICAL DATA: This is the patient's subsequent encounter. Patient reports that signs and symptoms h ave been present for 2 days and indicates a pain score of Nonresponsive. MEDICAL/SURGICAL HISTORY: Chronic obstructive pulmonary disease. Diabetes mellitus type II. C arcinoma, lung. . [id number] COMPARISON: Chest x-ray 09/01/2017. FINDINGS: A single portable frontal view the chest shows an endotracheal tube with the tip 3 cm from the rebecca . Nasogastric tube coiled in the fundus. Right-sided Port-A-Cath. Left internal jugular vein central venous line. Tip near the cavoatrial junction. No pneumothorax. Large masslike consolidation involvin g the right lower lobe is more dense relative to the prior study. Worsening consolidation surrounding this lesion. Left lung is clear. No effusions. Heart is normal in size. CONCLUSION: Worsening consolidation within the right lung base surrounding a masslike density. Central line in good position without pneumothorax. Electronically signed by: Kalia Conteh MD 09/02/2017 6:27 PM EDT
[2017-09-02] MEDS ORDERED: SODIUM CHLOR 0.9% 1000 ML INJ 1,000 ML IV SCH (18:29)
[2017-09-02] MEDS ORDERED: NURSING INFORMATION XX SCH (18:30)
[2017-09-02] MEDS ORDERED: POTASSIUM CHLORIDE 25 MEQ EFFERVESCENT TAB PO PRN (18:30)
[2017-09-02] MEDS ORDERED: fentaNYL DRIP 250 ML IV PRN (18:30)
[2017-09-02] MEDS ORDERED: MAGNESIUM SULFATE INJ 4 GM in SODIUM CHLORIDE 0.9% INJ 92 ML IV PRN (18:30)
[2017-09-02] MEDS ORDERED: MAGNESIUM HYDROXIDE SUSP 30 ML CUP PO PRN (18:30)
[2017-09-02] MEDS ORDERED: POTASSIUM CHLOR 20 MEQ PREMIX 100 ML IV PRN ×2 (18:30)
[2017-09-02] MEDS ORDERED: POTASSIUM PHOSPHATE MONOBASIC 500 MG TAB PO PRN (18:30)
[2017-09-02] MEDS ORDERED: LACTULOSE SYRUP 20 GM/30 ML CUP PO PRN (18:30)
[2017-09-02] MEDS ORDERED: POTASSIUM PHOSPHATE MONOBASIC 500 MG TAB PO/TUBE PRN (18:30)
[2017-09-02] MEDS ORDERED: MAGNESIUM SULFATE INJ 2 GM in SODIUM CHLORIDE 0.9% INJ 96 ML IV PRN (18:30)
[2017-09-02] MEDS ORDERED: ACETAMINOPHEN 325 MG TAB PO PRN (18:30)
[2017-09-02] MEDS ORDERED: RESP: ALBUTEROL 2.5 MG/IPRATROPIUM 0.5 MG NEB (PRN) INH (18:30)
[2017-09-02] MEDS ORDERED: ONDANSETRON HCL 4 MG/2 ML VIAL IV PUSH PRN (18:30)
[2017-09-02] MEDS ORDERED: SODIUM PHOSPHATE INJ 30 MMOL in SODIUM CHLOR 0.9% 250 ML INJ 240 ML IV PRN (18:30)
[2017-09-02] MEDS ORDERED: MAGNESIUM OXIDE 400 MG TAB PO PRN (18:30)
[2017-09-02] MEDS ORDERED: SENNOSIDES 8.6 MG TAB PO PRN (18:30)
[2017-09-02] MEDS ORDERED: POTASSIUM PHOSPHATE INJ 30 MMOL in SODIUM CHLOR 0.9% 250 ML INJ 250 ML IV PRN (18:30)
[2017-09-02] MEDS ORDERED: POTASSIUM CHLOR 40 MEQ PREMIX 100 ML IV PRN ×2 (18:30)
[2017-09-02] MEDS ORDERED: BISACODYL 10 MG SUPP RECTAL PRN (18:30)
[2017-09-02] MEDS ORDERED: CHLORHEXIDINE GLUCONATE 2 % 1 PACK (2 CLOTHS) TOP PRN (18:30)
--- NOTE | 2017-09-02 18:30 | RADRPT ---
EXAM DATE: 09/02/2017 6:23 PM EDT AGE/SEX: 66 years / Female INDICATIONS: Uncontrolled bleeding from unknown source. CLINICAL DATA: This is the patient's subsequent encounter. Patient reports that signs and symptoms h ave been present for 2 days and indicates a pain score of Nonresponsive. MEDICAL/SURGICAL HISTORY: Chronic obstructive pulmonary disease. Diabetes mellitus type II. C arcinoma, lung. . [id number] COMPARISON: None . FINDINGS: The abdominal bowel gas pattern is normal. No abnormal masses, calcifications, or organomegaly is s een. The osseous structures are unremarkable. Cholecystectomy clips. CONCLUSION: Unremarkable bowel gas pattern. Electronically signed by: Kalia Conteh MD 09/02/2017 6:29 PM EDT
--- NOTE | 2017-09-02 18:44 | PD.PROCEDR ---
Procedure Note Procedure Endotracheal Intubation Diagnosis: Cardiac Arrest Indications: Cardiac Arrest/ Hemorrhage Consent: Emergent Anesthesia: None Description of the Procedure: The patient was positioned in the sniffing position. Noted Copious amount of blood and clots, emanating from mouth , approximating > 2 L. Pre-oxygenation was performed using a 100% BVM, during CPR. A glidescope 3 was used for laryngoscopy and a Grade 1 view was obtained. A 7.5 cuffed endotracheal tube was inserted atraumatically through the vocal cords. Confirmation of correct endotracheal tube placement was made by equal and bilateral breath sounds and colorimetric CO2 detection, and direct visualization. The endotracheal tube was secured at 23 cm at the teeth. There were no immediate complications noted. CPR continued with ROSC (see Code sheet) and transfer to [facility]. A chest x-ray has been ordered. I personally performed the procedure. Annette Gannon MD September 02, 2017 18:44
[2017-09-02] MEDS ORDERED: DEXTROSE 50% IN WATER 50 ML VIAL(D50) IV PUSH PRN (18:45)
[2017-09-02] MEDS ORDERED: GLUCAGON 1 MG/ML VIAL OTHER PRN (18:45)
--- NOTE | 2017-09-02 18:49 | PD.PROCEDR ---
Procedure Note Procedure Date: 09/02/17 Procedure: Cardiopulmonary resuscitation Indication:Cardiac arrest/ Hemorrhage Details of procedure: Patient developed asystole cardiac arrest. Found down approximately > 2L EBL noted around patient, with continuous bleeding from mouth. Per ACLS protocol, patient received CPR, manual bag-valve ventilation via ETT, epinephrine and sodium bicarbonate, normal saline 1 L IV. After approximately 17 minutes resuscitation we were able to restore spontaneous circulation (Please review ACLS record) . The family was notified by Dr. Gannon @ [id number]. Annette Gannon MD September 02, 2017 18:49
--- NOTE | 2017-09-02 18:51 | PD.PROCEDR ---
Procedure Note Procedure Procedure: Arterial Line Placement Left Radial Diagnosis: S/P Cardiac Arrest Indications: same Consent: Emergent Description of the Procedure: The left radial was prepped and draped sterilely. 1% lidocaine was used for local anesthesia. The pulse was located and a needle was advanced into the artery. A 20 gauge, 1.34 cm catheter was advanced into the artery using a modified Seldinger technique. The catheter was sutured to the skin and a sterile dressing was applied. The catheter was connected to a pressure transducer and an arterial waveform was noted. There were no immediate complications noted. There was minimal EBL. I personally performed the procedure. Annette Gannon MD September 02, 2017 18:51
--- NOTE | 2017-09-02 18:53 | PD.PROCEDR ---
Central Line Procedure REASON FOR PROCEDURE Central venous access PROCEDURE PERFORMED Central line placement: Left internal jugular CONSENT Informed consent for procedure was not obtained, emergent S/P cardiac arrest . ANESTHESIA Local injection of 1% Lidocaine DESCRIPTION OF THE PROCEDURE The patient was placed in supine, mild Trendelenburg position. The area was exposed and cleansed with ChloraPrep, times two. Large sterile drape was used to cover the patient, with the site exposed, under sterile conditions including cap, face mask, sterile gown, and sterile gloves. On single attempt, the introducer needle was inserted with negative pressure in syringe and venous flash was obtained. The guide wire was then advanced without any restriction and the needle was removed. The dilator was used without any complications. Using Seldinger technique the 7F catheter was advanced over the guide wire to a depth of 20 centimeters. The guide wire was removed. All ports were aspirated with dark venous blood return and flushed easily with sterile saline. All ports were capped. Antibiotic disc was placed around central line at puncture site. The central line was secured to the skin with two interrupted 2.0 silk sutures. The area was bandaged with sterile see-through central line bandage. RADIOLOGICAL DATA Ultrasound guidance was used to locate left internal jugular. Doppler/color flow was used to confirm venous flow. COMPLICATIONS: No apparent complications ESTIMATED BLOOD LOSS: Less than 1 cc. CXR pending Annette Gannon MD September 02, 2017 18:53
--- NOTE | 2017-09-02 19:18 | PD.CONS ---
HPI Service Critical Care Medicine Consult Requested By Primary Care Physician No Primary Care Physician History of Present Illness This is a 66-year-old female with a past medical history of diabetes mellitus lung cancer and hypertension that presented to the ED last evening with complaints of dizziness and hypotension. Per report the patient had had an episode of hemoptysis but currently upon admission was not coughing up blood. The patient was admitted to the CICU. The patient had recently started concurrent chemotherapy and XRT over the last several weeks. Hemoglobin upon admission was 10.5. Her imaging studies previously reviewed chest x-ray revealed a large cavitary lesion in the right lower lobe that had been identified on previous PET scan and CT at approximately 1643 the patient was found down in her room and CIC with approximately greater than 2 L of blood around her and blood continuously emanating from her mouth and asystolic cardiac rhythm. CPR was initiated, Dr. Guevara was present (please refer to ACLS record) which lasted approximately 17 minutes. Upon intubation ,patient was noted to have copious amounts of blood, and blood clots and blood emanating from trachea and posterior oropharynx unable to determine if it was esophageal versus laryngeal in origination. Upon ROSC, the patient was emergently transported to [facility] [place]. Venous blood gas was obtained which showed a pH of 6.85 sodium bicarb was given, sodium bicarbonate infusion was initiated hemoglobin was noted to be 3.0. Emergency release packed red blood cells were initiated as well as type and screen. GI had previously been consulted please refer to their note. Patient continued to be severely hypotensive a left radial arterial line was placed patient was placed on phenylephrine and norepinephrine infusions as well as a sodium bicarbonate infusion. The patient's family arrived, and patient's son and daughter was updated on her medical status. Review of Systems ROS Limitations: Clinical Condition, Intubated, Altered Mental Status, Unresponsive Past Family Social History Allergies: Coded Allergies: No Known Allergies (Unverified , 09/01/17) Past Medical History Please refer to history and physical. Unable to obtain Past Surgical History Unable to obtain Reported Medications Reviewed Active Ordered Medications See MAR Family History Unable to obtain Social History History of smoking per review of medical records Physical Exam Vital Signs Vital Signs Date Time Temp Pulse Resp B/P (MAP) Pulse Ox O2 Delivery O2 Flow Rate FiO2 09/02/17 18:02 100 100 09/02/17 15:48 98.0 88 24 91/53 (66) 99 09/02/17 12:15 100.3 115 24 107/68 (81) 98 09/02/17 07:45 105 22 100/65 (77) 100 09/02/17 06:05 83 16 105/60 (75) 100 09/02/17 05:05 98.8 90 16 86/59 (68) 100 09/02/17 02:44 20 09/02/17 01:39 102.3 135 20 146/80 (102) 98 09/02/17 01:26 09/02/17 00:21 98 Nasal Cannula 2.00 09/01/17 23:06 128 18 126/70 (88) 100 Nasal Cannula 2.00 09/01/17 21:08 92 Nasal Cannula 4.00 09/01/17 21:08 92 Nasal Cannula 4.00 09/01/17 21:08 120/62 (81) 133/69 (90) 09/01/17 21:06 121 20 133/69 (90) 92 Nasal Cannula 4.00 09/01/17 21:02 126 20 87 Nasal Cannula 2.00 Physical Exam GENERAL: Well-developed well-nourished female critically ill, hemorrhage blood emanating from mouth and nose SKIN: Warm and dry. HEAD: Atraumatic. Normocephalic. EYES: Pupils equal and round. No scleral icterus. Nonreactive .no injection or drainage. ENT:nasal bleeding . Mucous membranes full of blood clots, and continuous bleeding NECK: Trachea midline, copious amount of blood noted in the oropharynx. No JVD. CARDIOVASCULAR: Normal rate, regular rhythm. RESPIRATORY: No accessory muscle use. Clear to auscultation. Breath sounds equal bilaterally. 7.5 ET GASTROINTESTINAL: Abdomen soft, non-tender, nondistended. No guarding. MUSCULOSKELETAL: Extremities without clubbing, cyanosis, or edema. No obvious deformities. NEUROLOGICAL: Unconscious status post cardiac arrest, agonal respirations GCS 3T Laboratory Laboratory Tests Test 09/01/17 21:10 09/02/17 02:40 09/02/17 06:15 09/02/17 17:28 White Blood Count 6.6 4.4 Red Blood Count 3.43 3.10 Hemoglobin 10.5 9.5 Hematocrit 31.2 27.7 Mean Corpuscular Volume 90.9 89.5 Mean Corpuscular Hemoglobin 30.7 30.7 Mean Corpuscular Hemoglobin Concent 33.8 34.3 Red Cell Distribution Width 15.2 15.3 Platelet Count 199 164 Mean Platelet Volume 9.0 8.7 Neutrophils (%) (Auto) 82.9 92.6 Lymphocytes (%) (Auto) 11.1 2.4 Monocytes (%) (Auto) 5.2 4.8 Eosinophils (%) (Auto) 0.5 0.0 Basophils (%) (Auto) 0.3 0.2 Neutrophils # (Auto) 5.4 4.1 Lymphocytes # (Auto) 0.7 0.1 Monocytes # (Auto) 0.3 0.2 Eosinophils # (Auto) 0.0 0.0 Basophils # (Auto) 0.0 0.0 CBC Comment DIFF FINAL AUTO DIFF Differential Comment FINAL DIFF MANUAL Prothrombin Time 12.1 Prothromb Time International Ratio 1.2 Activated Partial Thromboplast Time 29.3 Blood Urea Nitrogen 12 13 Creatinine 0.60 0.68 Random Glucose 198 291 Total Protein 6.3 5.9 Albumin 2.1 2.0 Calcium Level 8.5 7.7 Magnesium Level 1.7 Alkaline Phosphatase 100 88 Aspartate Amino Transf (AST/SGOT) 19 13 Alanine Aminotransferase (ALT/SGPT) 17 16 Total Bilirubin 1.0 1.0 Sodium Level 129 131 Potassium Level 3.5 3.3 Chloride Level 96 98 Carbon Dioxide Level 21.6 21.1 Anion Gap 11 12 Estimat Glomerular Filtration Rate 100 87 Total Creatine Kinase 35 Troponin I LESS THAN 0.02 B-Type Natriuretic Peptide 22 Lipase 55 Differential Total Cells Counted 100 Neutrophils % (Manual) 86 Band Neutrophils % 11 Lymphocytes % 1 Monocytes % 1 Neutrophils # (Manual) 4.3 Metamyelocytes 1 Toxic Vacuolation PRESENT Dohle Bodies PRESENT Platelet Estimate NORMAL Platelet Morphology Comment NORMAL Red Cell Morphology Comment NORMAL Lactic Acid Level 1.7 Blood Gas Puncture Site CENTRAL LINE Blood Gas Patient Temperature 98.6 Venous Blood pH 6.89 Venous Blood Partial Pressure CO2 91 Venous Blood Partial Pressure O2 46 Venous Blood HCO3 17 Venous Blood Oxygen Saturation 46 Venous Blood Oxygen Content 2.5 Venous Blood Base Excess -14.7 Oxygen Delivery Device VENTILATOR Blood Gas Ventilator Setting AC Blood Gas Inspired Oxygen 100 Test 09/02/17 17:39 Blood Gas Puncture Site RT RADIAL Blood Gas HCO3 18 Blood Gas Base Excess -11.7 Blood Gas Oxygen Saturation 94 Arterial Blood pH 7.00 Arterial Blood Partial Pressure CO2 78 Arterial Blood Partial Pressure O2 109 Arterial Blood Oxygen Content 4.9 Arterial Blood Carboxyhemoglobin 0.5 Arterial Blood Methemoglobin 1.1 Blood Gas Hemoglobin 3.5 Oxygen Delivery Device VENTILATOR Blood Gas Ventilator Setting Blood Gas Inspired Oxygen 100 Date/Time Source Procedure Growth Status 09/02/17 02:40 Blood Peripheral Aerobic Blood Culture Pending Received 09/02/17 02:40 Blood Peripheral Anaerobic Blood Culture Pending Received Result Diagram: 09/02/17 0240 09/02/17 0240 Imaging Last Impressions Chest X-Ray 09/02/17 0000 Signed Impressions: CONCLUSION: Worsening consolidation within the right lung base surrounding a masslike de nsity. Central line in good position without pneumothorax. Abdomen X-Ray 09/02/17 0000 Signed Impressions: CONCLUSION: Unremarkable bowel gas pattern. Septic Shock Reassessment Septic shock perfusion: reassessment completed Assessment and Plan Problem List: (1) Metabolic acidosis ICD Code: E87.2 - Acidosis (2) Electrolyte abnormality ICD Code: E87.8 - Other disorders of electrolyte and fluid balance, not elsewhere classified (3) Cardiac arrest ICD Code: I46.9 - Cardiac arrest, cause unspecified Status: Acute (4) Hypovolemic shock ICD Code: R57.1 - Hypovolemic shock Status: Acute (5) Acute blood loss anemia ICD Code: D62 - Acute posthemorrhagic anemia Status: Acute (6) Hemorrhage ICD Code: R58 - Hemorrhage, not elsewhere classified Status: Acute (7) Lung cancer, lower lobe ICD Code: C34.30 - Malignant neoplasm of lower lobe, unspecified bronchus or lung Status: Chronic (8) Anemia ICD Code: D64.9 - Anemia, unspecified Status: Acute Assessment and Plan This is a 66-year-old female with stage III lung cancer with a large cavitary mass, that presented with hematemesis in the last 24 hours, now with hemoptysis , massive blood loss, status post cardiac arrest. The patient is critically ill. Prognosis is very guarded. Plan by systems: Neurologic: Metabolic encephalopathy Possible anoxic encephalopathy Neuro checks per ICU protocol Avoid sedative type medication Tylenol for fever greater than 101 Respiratory: Acute hypoxemic respiratory arrest 09/02 intubated 7.5 ETT 23 cm @ lip Ventilator bundle Duo nebs every 6 hours scheduled every 2 hours as needed No CPAP trials until patient is hemodynamically stable Cardiovascular: Status post cardiac arrest secondary to acute blood loss/hypovolemic shock Hemoglobin 9.5 initially, greater than 3 L blood, hemoglobin 3.0 status post CPR Apply flow track, monitors SVV, cardiac index , cardiac output Volume resuscitate Patient currently on phenylephrine and norepinephrine continue to wean Maintain map greater than 65mmHG Renal: Insert and maintain Renner catheter -- Strict I/Os FEN/GI: Severe metabolic acidosis Hematemesis/upper GI bleed Electrolyte abnormality Replete electrolytes per ICU Normal saline at 84 cc/ Maintain n.p.o. status Zofran for nausea Famotidine GI prophylaxis Bowel regimen Heme/ID: Acute blood loss anemia Hemoglobin 3 status post cardiac arrest massive hemorrhage Emergency release blood 2 units continue to transfuse for hemoglobin greater than 8 mg/dL Obtain pulse transfusion CBC 1 hour Obtain fibrinogen, d-dimer Consult invasive radiology-patient may need embolization of cavitary lung lesion Endocrine: Glucose monitoring per ICU protocol -- SSI Prophylaxis: GI Prophylaxis Famotidine twice daily DVT Prophylaxis -- SCDs No pharmacological DVT prophylaxis in the setting of hemorrhage Lines: Left radial A-line (day 1), left IJ central ( day 1), right subclavian port in situ Dispo: my billing statement This patient remains critically ill with one or more organ systems which are or may become a threat to life. I have spent in excess of 67 minutes discontinuously in the care and management of this patient. This time is exclusive of procedures, and includes, but is not limited to, evaluation of the patient, review of the medical record, discussions with family, consultants, nursing staff, or respiratory therapy, and documentation in the medical record. Code Status Full Discussed Condition With Dr. Guevara, Dr Wallace, Dr. Rivera and patient son Shan and daughter Annette Gannon September 02, 2017 19:18
[2017-09-02 19:22] LABS: HEMATOCRIT 32.9 % (35.0-46.0); HEMOGLOBIN 10.5 GM/DL (11.6-15.3)
[2017-09-02] MEDS ORDERED: CHLORHEXIDINE 0.12% (ORAL KIT) 15 ML CUP MT SCH (20:00)
[2017-09-02 20:04] LABS: INTERNATIONAL NORMALIZED RATIO 1.6 RATIO; PROTHROMBIN TIME - PATIENT 16.1 SEC (9.8-11.6)
[2017-09-02] MEDS ORDERED: INSULIN ASPART SUPPLEMENTAL SCALE SQ SCH (21:00)
[2017-09-02] MEDS ORDERED: FAMOTIDINE 20 MG/2 ML VIAL IV PUSH SCH (21:00)
[2017-09-02] MEDS ORDERED: RESP: ALBUTEROL 2.5 MG/IPRATROPIUM 0.5 MG NEB (SCH) INH (22:00)
[2017-09-03] MEDS ORDERED: CHLORHEXIDINE GLUCONATE 2 % 1 PACK (2 CLOTHS) TOP SCH (04:00)
[2017-09-03] MEDS ORDERED: PHARMACY ORDERED LAB ONE (05:45)
--- NOTE | 2017-09-05 06:04 | HHI.DS ---
Summary Note Date of : September 02, 2017 Time Of : 1917 Admission Date September 01, 2017 at 23:42 Admitting Diagnosis LARGE HEMOPTYSIS, TRANSIENT HYPOTENSION Diagnosis at Time of : (1) Lung cancer ICD Code: C34.90 - Malignant neoplasm of unspecified part of unspecified bronchus or lung (2) Anemia ICD Code: D64.9 - Anemia, unspecified (3) Hyponatremia ICD Code: E87.1 - Hypo-osmolality and hyponatremia (4) DM (diabetes mellitus) ICD Code: E11.9 - Type 2 diabetes mellitus without complications Brief History This is a 66-year-old male with a PMH of HTN, DM and Lung CA who is brought to the ER by EMS secondary to dizziness and hypotension. Initially reported to have had episode of hemoptysis, however Daughter reports pt w/ episode of vomiting blood, not coughing up blood. Symptoms now resolved. No previous h/o GI Bleed. Currently under Chemo/Radiation w/ Dr. Muñoz and Dr. Moeller. Denies fever, chills, abdominal pain or diarrhea. Does note chronic non-productive cough which pt states is baseline. On arrival, BP 133/69, HR 121, O2 sat 92% on 4L NC. Hemoglobin 10.5, previously 12.5 on 08/13/2017. Na 129, otherwise chemistry unremarkable. Troponin negative. INR 1.2. CXR with large cavitary lesion in right lower lobe identified on previous PET/CT. CBC/BMP: 09/02/17 1900 09/02/17 0240 Significant Findings Laboratory Tests Test 09/02/17 06:15 09/02/17 17:28 09/02/17 17:39 09/02/17 19:00 Venous Blood pH 6.89 (7.360-7.400) Venous Blood Partial Pressure CO2 91 mmHg (44-48) Venous Blood Partial Pressure O2 46 mmHg (35-40) Venous Blood HCO3 17 mmol/L (22-26) Venous Blood Oxygen Saturation 46 % (70-76) Venous Blood Oxygen Content 2.5 Vol % (9.0-17.0) Venous Blood Base Excess -14.7 mmol/L (-2-2) Blood Gas HCO3 18 mmol/L (22-26) Blood Gas Base Excess -11.7 mmol/L (-2-2) Arterial Blood pH 7.00 (7.380-7.420) Arterial Blood Partial Pressure CO2 78 mmHg (38-42) Arterial Blood Oxygen Content 4.9 Vol % (12.0-20.0) Blood Gas Hemoglobin 3.5 G/DL (12.0-16.0) Hemoglobin 10.5 GM/DL (11.6-15.3) Hematocrit 32.9 % (35.0-46.0) Prothrombin Time 16.1 SEC (9.8-11.6) Imaging Last Impressions Chest X-Ray 09/02/17 Signed Impressions: CONCLUSION: Worsening consolidation within the right lung base surrounding a masslike de nsity. Central line in good position without pneumothorax. Abdomen X-Ray 09/02/17 Signed Impressions: CONCLUSION: Unremarkable bowel gas pattern. Hospital Course This is a 66-year-old female with a past medical history of diabetes mellitus lung cancer and hypertension that presented to the ED last evening with complaints of dizziness and hypotension. Per report the patient had had an episode of hemoptysis but currently upon admission was not coughing up blood. The patient was admitted to the CICU. The patient had recently started concurrent chemotherapy and XRT over the last several weeks. Hemoglobin upon admission was 10.5. Her imaging studies previously reviewed chest x-ray revealed a large cavitary lesion in the right lower lobe that had been identified on previous PET scan and CT at approximately 1643 the patient was found down in her room and CIC with approximately greater than 2 L of blood around her and blood continuously emanating from her mouth and asystolic cardiac rhythm. CPR was initiated, Dr. Guevara was present (please refer to ACLS record) which lasted approximately 17 minutes. Upon intubation ,patient was noted to have copious amounts of blood, and blood clots and blood emanating from trachea and posterior oropharynx unable to determine if it was esophageal versus laryngeal in origination. Upon ROSC, the patient was emergently transported to [facility]. Venous blood gas was obtained which showed a pH of 6.85 sodium bicarb was given, sodium bicarbonate infusion was initiated hemoglobin was noted to be 3.0. Emergency release packed red blood cells were initiated as well as type and screen. GI had previously been consulted please refer to their note. Patient continued to be severely hypotensive a left radial arterial line was placed patient was placed on phenylephrine and norepinephrine infusions as well as a sodium bicarbonate infusion. The patient's family arrived, and patient's son and daughter was updated on her medical status. 1917: The patient went into cardiac arrest, with the patient's children at the bedside, the patient at 1917. Annette Gannon MD September 05, 2017 06:04
== END 2017-09-02 21:15 | disposition expired | DRG 208 ==
LOC: NEPE 20:57 → NEDA 23:42 → HCIN 09-02 01:20 → HIMW 09-02 17:15
PROVIDERS: ADMIT Internal Medicine; ATTEND Internal Medicine
PROC: 5A1935Z Respiratory Ventilation, Less than 24 Consecutive Hours (ICD-10-PCS; principal; 2017-09-02)
PROC: 5A12012 Performance of Cardiac Output, Single, Manual (ICD-10-PCS; 2017-09-02)
PROC: 0BH17EZ Insertion of Endotracheal Airway into Trachea, Via Natural or Artificial Opening (ICD-10-PCS; 2017-09-02)
PROC: 30233N1 Transfusion of Nonautologous Red Blood Cells into Peripheral Vein, Percutaneous Approach (ICD-10-PCS; 2017-09-02)
PROC: 03HC33Z Insertion of Infusion Device into Left Radial Artery, Percutaneous Approach (ICD-10-PCS; 2017-09-02)
PROC: 0CJS8ZZ Inspection of Larynx, Via Natural or Artificial Opening Endoscopic (ICD-10-PCS; 2017-09-02)
PROC: 02HV33Z Insertion of Infusion Device into Superior Vena Cava, Percutaneous Approach (ICD-10-PCS; 2017-09-02)
PROC: B548ZZA Ultrasonography of Superior Vena Cava, Guidance (ICD-10-PCS; 2017-09-02)
DX: C34.31 Malignant neoplasm of lower lobe, right bronchus or lung (principal); R57.1 Hypovolemic shock; I46.9 Cardiac arrest, cause unspecified; G93.41 Metabolic encephalopathy; A41.9 Sepsis, unspecified organism; J18.9 Pneumonia, unspecified organism; I95.9 Hypotension, unspecified; E87.2 Acidosis; E87.1 Hypo-osmolality and hyponatremia; D62 Acute posthemorrhagic anemia; R04.2 Hemoptysis; I10 Essential (primary) hypertension; E03.9 Hypothyroidism, unspecified; E11.9 Type 2 diabetes mellitus without complications; R00.0 Tachycardia, unspecified; E66.9 Obesity, unspecified; F17.210 Nicotine dependence, cigarettes, uncomplicated; H91.90 Unspecified hearing loss, unspecified ear; Z79.84 Long term (current) use of oral hypoglycemic drugs
CPT/HCPCS: 31500; 36430; 36556; 36600; 71045; 74018; 76937; 80053; 82550; 82805; 82948; 83605; 83690; 83735; 83880; 84484; 85007; 85014; 85018; 85025; 85027; 85384; 85610; 85730; 86850; 86900; 86901; 86920; 87040; 92950; 93005; 94002; 99291; C9113; J0692; J1642; J1815; J3370; J3480; J7030; J7050; J7070; P9016